=== PATIENT | male | born 1980 | race Caucasian/White ===

== ENCOUNTER 2019-03-28 08:10 | Emergency (ER) | payer OTHER ==
[~2019-03-28] VITALS: Ht 188 cm; Wt 129.3 kg
--- OUTSIDE RECORDS SUMMARY | ~2019-03-28 | XMS | Encounter Summary ---
Demographics + + + | Address | [address] | | | [place] [address] | + + + | Home Phone | | + + + | Preferred Language | Unknown | + + + | Marital Status | Unknown | + + + | Taoism Affiliation | 1013 | + + + | Race | Unknown | + + + | Ethnic Group | Unknown | + + + Author + + + | Author | [facility] | | | and [place] | + + + | Organization | [facility] | | | and [place] [...] Team Providers + +------+ + | Care Net Technical Architect Name | Role | Phone | + +------+ + | Corrine Carroll | PCP | | | CONTRACT ADMINISTRATION COORDINATOR | | | + +------+ + Reason for Visit + + + | Reason | Comments | + + + | Hand Pain | right hand | + + + | Knee Pain | left knee pain | + + + Evaluate & Treat (Routine) +--------+--------+ + + + + | Status | Reason | Specialty | Diagnoses / | Referred By | Referred To | | | | | Procedures | Contact | Contact | +--------+--------+ + + + + | Closed | | Orthopedic | Diagnoses | Blood, | Sae, | | | | Surgery | Closed | Corrine | Maik Madden MD | | | | | fracture of | [place], | [address] | | | | | metacarpal | CONTRACT ADMINISTRATION COORDINATOR [address] [place] | | | | | bone(s), | [address] | [place], [place] | | | | | site | [place], | [address] Phone: | | | | | unspecified | [place] [address] | [phone] | | | | | Pain in | Phone: | Fax: | | | | | joint, lower | [phone] | [phone] | | | | | leg | Fax: | | | | | | Aftercare | [phone] | | | | | | for healing | | | | | | | traumatic | | | | | | | fracture of | | | | | | | lower arm | | | | | | | Osteoarthros | | | | | | | is, | | | | | | | unspecified | | | | | | | whether | | | | | | | generalized | | | | | | | or | | | | | | | localized, | | | | | | | ankle and | | | | | | | foot | | | +--------+--------+ + + + + Encounter Details +--------+---------+ + + + | Date | Type | Department | Care Team | Description | +--------+---------+ + + + | 05/23/ | Office | [facility] | Maik Quevedo | Closed fracture of | | 2013 | Visit | ORTHOPEDIC SURGERY | MD Chano [address] [place] [address] | fifth metacarpal | | | | [address] [facility] | [place] | bone of right hand | | | | [place] | [address] | (Primary Dx); | | | | [address] | | Arthritis of knee, | | | | [phone] | | degenerative | +--------+---------+ + + + Social History + + [...] on file | | + + + + + + + | Job Start Date | Occupation | Industry | + + + + | Not on file | Not on file | Not on file | + + + + + + + + | Travel History | Travel Start | Travel End | + + + + + + | No recent travel history available. | + + documented as of this encounter Last Filed Vital Signs + + + [...] + + + documented in this encounter Progress Notes Maik Quevedo MD - 05/23/2013 8:00 PM Taras schmitz note [id number].Electronically arlin d by Maik Quevedo MD at 05/23/2013 8:00 PM Maik Hill MD - 05/23/2013 12:00 AM PST ORTHOPEDICS [facility] [place] [address] FAX: [phone] OFFICE VISIT IDENTIFICATION Marie Scott is a 32-year-old male who sees [facility] for primary car e. He resides in [place]. CHIEF COMPLAINT: Right hand pain and left knee pain. HISTORY: Mr. Scott states that he sustained anxiety attacks, which causes irrational beh avior. He apparently awoke from anxiety attack and noted swelling and pain in his right sherman d. He was seen in the emergency room at [facility] and found to have a comm inuted fracture dislocation of the base of his right 5th metacarpal. He was subsequently se en by Dr. Kennedy who then took the patient to surgery on February 09, for open reduction and i nternal fixation of his proximal right 5th metacarpal fracture dislocation. The pins were le ft in until March 08, approximately 1 month later, at which time they were removed. He w as seen for a final followup on March 29, at which time he complained of a 4/10 pain and was not felt to need any further formal followup. Today, Mr. Scott is concerned about co ntinued discomfort and a feeling of stiffness in his right hand. He denies recurrent injury following his surgery. He voiced concern about possible dislocation of his hand. In regards to his left knee, he notes persisting discomfort in the anterior aspect of his l eft knee for a number of months. He does not recall a specific injury. He notes that his kn ee is more symptomatic with physical activity. PAST MEDICAL HISTORY: Includes restless leg syndrome, anxiety, depression, gastroesophageal reflux disease, and obesity. 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 PAST SURGICAL HISTORY: Includes cholecystectomy, tonsillectomy, adenoidectomy, and right peres nd surgery. MEDICATION ALLERGIES: AZITHROMYCIN. CURRENT MEDICATIONS 1. Tramadol p.r.n. pain. 2. Requip 1 mg p.o. daily. 3. Zofran p.r.n. 4. Pantoprazole 40 mg p.o. daily. 5. Levaquin 500 mg p.o. daily. 6. Xanax 0.5 mg p.o. t.i.d. p.r.n. 7. Celexa daily. 8. Acetaminophen p.r.n. pain. FAMILY HISTORY: Positive for arthritis, asthma, defects, COPD, depression, diabetes, early , hearing loss, heart disease, high blood pressure, mental illness and vision lo ss. REVIEW OF SYSTEMS: Positive for glasses, ringing in the ears, neck pain, back pain, and verónica nt problems. PHYSICAL EXAMINATION: The patient's right hand is examined. He has well-healed scars includ ing a short longitudinal incision over the proximal dorsal aspect of the 5th metacarpal as well as several pin site incisions which are well healed. The patient is able to touch the tip of the finger to his palm. He is able to abduct and adduct all the fingers of the right hand. He has intact neurovascular function to the tips of all fingers of the right hand. H e complains of moderate tenderness to palpation in the region of the proximal 5th metatarsa l. There is no rotational deformity of the 5th ray of the right hand. Exam of the patient's left knee reveals tenderness surrounding the patella with a suggestio n of patellar crepitus associated with knee motion. The patella was tracking in the midline . The knee ligaments are stable. Neurovascular function is intact to the left foot. X-RAYS: New x-rays are obtained today of the patient's right hand and carefully reviewed. T hese show a comminuted but well reduced fracture involving the proximal end of the 5th meta carpal. There appears to be somewhat minimal bone healing, although the fracture lines are slightly blurred. Overall metacarpal alignment and length appears to be essentially anatomi c. X-ray of the left knee is reviewed, which shows early degenerative change as suggested by a small marginal osteophyte formation in the proximal and distal patella as well as along th e tibial plateau margins. ASSESSMENT 1. THREE AND A HALF MONTHS STATUS POST OPEN REDUCTION AND INTERNAL FIXATION OF PROXIMAL FR ACTURE DISLOCATION, RIGHT 5TH METACARPAL WITH PROBABLE DELAYED BONY UNION. 2. EARLY DEGENERATIVE CHANGE, LEFT KNEE. 2. 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 ADVICE: We discussed our findings at length with Marie and his significant other. He con tinues to smoke on a regular basis. I advised him that recent orthopedic literature notes t hat nicotine users heal approximately half as fast as nonsmokers and that certainly some of his delayed healing is due to ongoing use of nicotine. We have strongly encouraged smoking cessation. I do not feel that he has a nonunion. We did discuss the option of obtaining a C T scan to verify bone healing, but I feel that he will go on to improve with further time. I suggested progressive use of the right hand to tolerance, but careful avoidance of furthe r high impact injury. He may wish to use oxes-mzw-svxeedc anti-inflammatory medications as needed for flares of pain. Certainly his hand will feel better with the passage of time and once of the weather starts to warm as spring approaches. We have answered questions from carlos Quiles and his significant other and will plan to see him back in the future as needed . Maik Quevedo MD / [facility] JOB #: [id number] signed by Maik Quevedo MD at 08/22/2013 2:20 PM PDTdo cumented in this encounter Plan of Treatment Not on filedocumented as of this encounter Results XR Hand Right 3 + Vw (05/23/2013 5:36 PM PST) + + | Specimen | + + | | + + + + + | Narrative | Performed At | + + + | [facility] | [place] | | [address] | [facility] | | [ rep [address]] [ rep [facility] | | st zip] Signed | - IMAGING | | | | | Patient Name: MARIE SCOTT Physician: | | | COREEN. : 1980 Age: 32 Sex: M Unit #: [id number] | | | Exam Date: 05/23/13 [place] [facility] [place] | | Report #: [id number] Page: | | | %(RAD)RES..mtdd.print.filter("pg") of %(RAD) | | | RES..mtdd.print.filter("tpg") | | | | | | Accession Number: [id number] | | | RIGHT HAND X-RAY CLINICAL [...] Transcribed Date/Time: | | | 05/23/2013 18:41 Dealer Analyst: | | | <<Signature on File>> | | | Kali | Tosha Bourgeois MD05/24/13 0743 <Electronically signed by Kali Bourgeois MD> Kali Bourgeois MD 05/23/13 1736 | | | Dealer Analyst: [employer] Jccnnzaofrzji26/04/14 1841 | | | Maik Quevedo MD | | + + + + + + + + | Performing | Address | City/State/Zipcode | Phone Number | | Organization | | | | + + + + + | [facility] | [address] | [place] | [phone] | | [facility] | | [address] | | | - IMAGING | | | | + + + + + documented in this encounter Visit Diagnoses + + | Diagnosis | + + | Closed fracture of fifth metacarpal bone of right hand - Primary Closed fracture of | | metacarpal bone(s), site unspecified | + + | Arthritis of knee, degenerative Osteoarthrosis, unspecified whether generalized or | | localized, lower leg | + + documented in this encounter
--- OUTSIDE RECORDS SUMMARY | ~2019-03-28 | XMS | Encounter Summary ---
Demographics + + + | Address | [address] | | | [place] [address] | + + + | Home Phone | | + + + | Preferred Language | Unknown | + + + | Marital Status | Unknown | + + + | Sikhism Affiliation | 1013 | + + + | Race | Unknown | + + + | Ethnic Group | Unknown | + + + Author + + + | Author | [facility] | | | and [place] | + + + | Organization | [facility] | | | and [place] [...] Team Providers + +------+ + | Care Cashiers Supervisor Name | Role | Phone | + +------+ + | Corrine Carroll | PCP | | | SALES ENGAGEMENT MANAGER | | | + +------+ + Encounter Details +--------+ + + + + | Date | Type | Department | Care Team | Description | +--------+ + + + + | 05/23/ | [facility] | [facility] | Maik Quevedo | Closed fracture of | | 2013 | Encounter | MED CTR XRAY [address] | [address], [address] [facility] | fifth metacarpal | | | | [place] | [place] | bone of right hand | | | | [place] [address] | [address] | | | | | [phone] | | | +--------+ + + + [...] Performed At | + + + | [facility] | [place] | | Department [address] [place] | [place] | | [ rep [address]] [ rep [facility] | | st zip] Signed | - IMAGING | | | | | Patient Name: RACHEAL JIMENEZTON Physician: | | | COREEN.01 : 1980 Age: 32 Sex: M Unit #: [id number] | | | Exam Date: 05/23/13 [place] [facility] [place] | | | Report #: [id number] Page: | | | %(RAD)RES..mtdd.print.filter("pg") of %(RAD) | | | RES..mtdd.print.filter("tpg") | | | | | | Accession Number: [id number] | | | RIGHT HAND X-RAY CLINICAL [...] Transcribed Date/Time: | | | 05/23/2013 18:41 Director Camp: | | | <<Signature on File>> | | | Kali | | | Serafin Bourgeois MD05/24/13 0743 <Electronically signed by Kali Betancourt | | Tosha Bourgeois MD> Kali Bourgeois MD 05/23/13 1736 | | | Director Camp: [employer] Intelligencemahsa Oujufkqdshxqp64/04/14 1841 | | | Maik Quevedo MD | | + + + + + + + + | Performing | Address | City/State/Zipcode | Phone Number | | Organization | | | | + + + + + | [facility] | [address] | [place] | [phone] | | [facility] | | [address] | | | - IMAGING | | | | + + + + + documented in this encounter Visit Diagnoses + + | Diagnosis | + + | Closed fracture of fifth metacarpal bone of right hand Closed fracture of metacarpal | | bone(s), site unspecified | + + documented in this encounter
--- OUTSIDE RECORDS SUMMARY | ~2019-03-28 | XMS | Clinical Summary ---
Demographics + + + | Address | [address] | | | [place] [address] | + + + | Home Phone | | + + + | Preferred Language | Unknown | + + + | Marital Status | Unknown | + + + | Mormon Affiliation | 1013 | + + + | Race | Unknown | + + + | Ethnic Group | Unknown | + + + Author + + + | Author | [facility] | | | and [place] | + + + | Organization | [facility] | | | and [place] [...] Team Providers + +------+ + | Care Reading Aide Name | Role | Phone | + [...] recent travel history available. | + + Last Filed Vital Signs + [...] + + Plan of Treatment + + + + + | Health Maintenance | Due Date | Last Done | Comments | + + + + + | Vaccine: | | | | | Dtap/Tdap/Td (1 - | 0 | | | | Tdap) | | | | + + + + + | Vaccine: Influenza | | | | | (#1) | 9 | | | + + + + + Results Not on filefrom Last 3 [...] | [employer] | [facility] | [id number] | 04/26/19 | [phone] | | Medica [...] | Self | [birth year] | [address] | | | al/Fam | | 1981 | [phone] | [place] [address] | | | [place]ia [place]ores | | | 6 (Home) | | + +--------+ +--------+ + + Advance Directives + + + + + | Type | Date Recorded | Patient | Explanation | | | | Screening Nurse | | + + + + + | Power of | | | | | Pmp | | | | + + + + + | Advance | | | | | Directive | | | | + + + + +
--- OUTSIDE RECORDS SUMMARY | ~2019-03-28 | XMS | Encounter Summary ---
Demographics + + + | Address | [address] | | | [place] [address] | + + + | Home Phone | | + + + | Preferred Language | Unknown | + + + | Marital Status | Unknown | + + + | Sabianist Affiliation | 1013 | + + + | Race | Unknown | + + + | Ethnic Group | Unknown | + + + Author + + + | Author | [facility] | | | and [place] | + + + | Organization | [facility] | | | and [...] Team Providers + +------+ + | Care Cone Machine Operator Name | Role | Phone | + +------+ + | Corrine Carroll | PCP | | | GRADING CLERK | | | + +------+ + Encounter Details +--------+ + + + + | Date | Type | Department | Care Team | Description | +--------+ + + + + | 05/23/ | [facility] | [facility] | Maik Quevedo | Closed fracture of | | 2013 | Encounter | MED CTR XRAY [address] [facility] | fifth metacarpal | | | | [place] | [place] | bone of right hand | | | | [place] [address] | [address] | | | | | [phone] | | | +--------+ + + + [...] Performed At | + + + | [facility] | ALLIGATOR | | Department [address] [place] | [facility] | | [ rep ct [address]] [ rep [facility] | | st zip] Signed | - IMAGING | | | | | Patient Name: RACHEAL JIMENEZTON Physician: | | | COREEN.01 : 1980 Age: 32 Sex: M Unit #: [id number] | | | Exam Date: 05/23/13 Location: [facility] [place] | | | Report #: [id number] Page: | | | %(RAD)RES..mtdd.print.filter("pg") of %(RAD) | | | RES..mtdd.print.filter("tpg") | | | | | | Accession Number: [id number] | | | RIGHT HAND X-RAY CLINICAL [...] Transcribed Date/Time: | | | 05/23/2013 18:41 Pmp: | | | <<Signature on File>> | | | Kali | | | Serafin Bourgeois MD05/24/13 0743 <Electronically signed by Kali Betancourt | | Tosha Bourgeois MD> Kali Bourgeois MD 05/23/13 1736 | | | Pmp: [email or web address].commahsa Itsseeiongofz31/04/14 1841 | | | Maik Quevedo MD | | + + + + + + + + | Performing | Address | City/State/Zipcode | Phone Number | | Organization | | | | + + + + + | [facility] | [address] | [place] | [phone] | | [facility] | | [address] | | | - IMAGING | | | | + + + + + documented in this encounter Visit Diagnoses + + | Diagnosis | + + | Closed fracture of fifth metacarpal bone of right hand Closed fracture of metacarpal | | bone(s), site unspecified | + + documented in this encounter
--- OUTSIDE RECORDS SUMMARY | ~2019-03-28 | XMS | Encounter Summary ---
Demographics + + + | Address | [address] | | | [place] [address] | + + + | Home Phone | | + + + | Preferred Language | Unknown | + + + | Marital Status | Unknown | + + + | Sabianist Affiliation | 1013 | + + + | Race | Unknown | + + + | Ethnic Group | Unknown | + + + Author + + + | Author | [facility] | | | and [place] | + + + | Organization | [facility] | | | and [place] [...] Team Providers + +------+ + | Care Rug Sizer Name | Role | Phone | + +------+ + | Corrine Carroll | PCP | | | FILLING WINDER | | | + +------+ + Encounter Details +--------+ + + + + | Date | Type | Department | Care Team | Description | +--------+ + + + + | 05/24/ | Abstract | [facility] | aMik Quevedo | | | 2013 | | ORTHOPEDIC SURGERY | MD [address]ano [address] | | | | | [address] [facility] | [place] | | | | | [place] | [address] | | | | | [address] | | | | | | [phone] | | | +--------+ + + + [...]
--- OUTSIDE RECORDS SUMMARY | ~2019-03-28 | XMS | Encounter Summary ---
Demographics + + + | Address | [address] | | | [place] [address] | + + + | Home Phone | | + + + | Preferred Language | Unknown | + + + | Marital Status | Unknown | + + + | Methodist Affiliation | 1013 | + + + | Race | Unknown | + + + | Ethnic Group | Unknown | + + + Author + + + | Author | [facility] | | | and [place] | + + + | Organization | [facility] | | | and [place] [...] Team Providers + +------+ + | Care American Studies Professor Name | Role | Phone | + +------+ + | Corrine Carroll | PCP | | | TAPPER BALANCE WHEEL SCREW HOLE | | | + +------+ + Encounter Details +--------+ + + + + | Date | Type | Department | Care Team | Description | +--------+ + + + + | 05/24/ | Abstract | [facility] | Maik Quevedo | | | 2013 | | ORTHOPEDIC SURGERY | MD [address]ano [address] [facility] | | | | | [address] [facility] | [place] | | | | | [place] | [address] | | | | | [address] | | | | | | [phone] | | | +--------+ + + + [...]
--- OUTSIDE RECORDS SUMMARY | ~2019-03-28 | XMS | Clinical Summary ---
Demographics + + + | Address | [address] | | | [place] [address] | + + + | Home Phone | | + + + | Preferred Language | Unknown | + + + | Marital Status | Unknown | + + + | Scientologist Affiliation | 1013 | + + + | Race | Unknown | + + + | Ethnic Group | Unknown | + + + Author + + + | Author | [facility] | | | and [place] | + + + | Organization | [facility] | | | and [...] Team Providers + +------+ + | Care Feed Elevator Worker Name | Role | Phone | + [...] | [employer] | [facility] | [id number] | 04/26/19 | [phone] | | Medica [...] | Self [birth year] | | [address] | | | al/Fam | | 1981 | [phone] | [place] [address] | | | maria dolores | | | 6 (Home) | | + +--------+ +--------+ + + Advance Directives + + + + + | Type | Date Recorded | Patient | Explanation | | | | Air And Hydronic Balancing Technician | | + + + + + | Power of | | | | | Clerk | | | | + + + + + | Advance | | | | | Directive | | | | + + + + +
--- OUTSIDE RECORDS SUMMARY | ~2019-03-28 | XMS | Encounter Summary ---
Demographics + + + | Address | [address] | | | [place] [address] | + + + | Home Phone | | + + + | Preferred Language | Unknown | + + + | Marital Status | Unknown | + + + | Oriental Orthodox Affiliation | 1013 | + + + | Race | Unknown | + + + | Ethnic Group | Unknown | + + + Author + + + | Author | [facility] | | | and [place] | + + + | Organization | [facility] | | | and [place] [...] Team Providers + +------+ + | Care Greenstone Polisher Operator Name | Role | Phone | + +------+ + | Corrine Carroll | PCP | | | PROOF PLATE MAKER | | | + +------+ + Reason [...] Surgery | Closed | Corrine | Maik Madedn MD | | | | | fracture of | [place], | [address] | | | | | metacarpal | PROOF PLATE MAKER [address] [place] | | | | | bone(s), | [address] | [place], [place] | | | | | site | [place], | [address] Phone: | | | | | unspecified | [place] [address] | [phone] | | | | | Pain in | Phone: | Fax: | | | | | joint, lower | [phone] | [phone] | | | | | leg | Fax: | | | | | | Aftercare | [phone] | | | | | | for [...] + + | 05/23/ | Office | [facility] | Maik Quevedo | Closed fracture of | | 2013 | Visit | ORTHOPEDIC SURGERY | MD Chano [address] [place] [address] | fifth metacarpal | | | | [address] [facility] | [place] | bone of right hand | | | | [place] | [address] | (Primary Dx); | | | | [address] | | Arthritis of knee, | | | | [phone] | | degenerative | +--------+---------+ + + [...] - 05/23/2013 8:00 PM Taras schmitz note [id number].Electronically arlin d by Maik Quevedo MD at 05/23/2013 8:00 PM Maik Hill MD - 05/23/2013 12:00 AM PST ORTHOPEDICS [facility] [place] [address] FAX: [phone] OFFICE VISIT IDENTIFICATION Marie Scott is a 32-year-old male who sees [facility] for primary car e. He resides in [place]. CHIEF COMPLAINT: Right hand pain and left knee pain. HISTORY: Mr. Scott states that he sustained anxiety attacks, which causes irrational beh avior. He apparently awoke from anxiety attack and noted swelling and pain in his right sherman d. He was seen in the emergency room at [facility] and found to have a [...] impact injury. He may wish to use vmss-qge-czhbqtm anti-inflammatory medications as needed for flares of pain. Certainly his hand will feel better with the passage of time and once of the weather starts to warm as spring approaches. We have answered questions from carlos Quiles and his significant other and will plan to see him back in the future as needed . Maik Quevedo MD / [facility] JOB #: [id number] signed by Maik Quevedo MD at 08/22/2013 2:20 PM PDTdo cumented in this encounter Plan of Treatment Not on filedocumented as of this encounter Results XR Hand Right 3 + Vw (05/23/2013 5:36 PM PST) + + | Specimen | + + | | + + + + + | Narrative | Performed At | + + + | [facility] | [place] | | [address] | [facility] | | [ rep [address]] [ rep [facility] | | st zip] Signed | - IMAGING | | | | | Patient Name: MARIE SCOTT Physician: | | | COREEN. : 1980 Age: 32 Sex: M Unit #: [id number] | | | Exam Date: 05/23/13 [place] [facility] [place] | | Report #: [id number] Page: | | | %(RAD)RES..mtdd.print.filter("pg") of %(RAD) | | | RES..mtdd.print.filter("tpg") | | | | | | Accession Number: [id number] | | | RIGHT HAND X-RAY CLINICAL [...] Transcribed Date/Time: | | | 05/23/2013 18:41 Wig Dresser: | | | <<Signature on File>> | | | Kali | Tosha Bourgeois MD05/24/13 0743 <Electronically signed by Kali Bourgeois MD> Kali Bourgeois MD 05/23/13 1736 | | | Wig Dresser: [employer] Rvnyuortzckxm82/04/14 1841 | | | Maik Quevedo MD | | + + + + + + + + | Performing | Address | City/State/Zipcode | Phone Number | | Organization | | | | + + + + + | [address] | [address] | [place] | [phone] | | [facility] | | [address] | | | - IMAGING | | [...]
[~2019-03-28 08:10] MED LIST: ABILIFY DISCMEL10 MG PO; ABILIFY10 MG; ACETAMINOPHEN-1 EAC1 PO; ANUSOL-HC30 GM PR; BENADRYL25 MG PO; CELEXA40 MG PO; CYMBALTA60 MG PO; DOXYCYCLINE HY100 MG PO; FLEXERIL10 MG PO; IBUPROFEN800 MG PO; LOPRESSOR50 MG PO; NAPROXEN500 MG PO; NORCO 10-325 T1 EACH PO; NORCO 5-325 TA1 EACH PO; PROMETHAZINE HC25 M1 PO; PROTONIX40 MG PO; REMERON15 M1 SL; REMERON15 MG PO; ROPINIROLE HCL1 MG PO; TRAMADOL HCL50 MG PO; TYLENOL325 M1 PO; ULTRAM50 MG PO; XANAX0.5 MG PO
--- OUTSIDE RECORDS SUMMARY | 2019-03-28 08:12 | XMS ---
PreManage Notification: MARIE JIMENEZ Security Lead Java Software Engineer Events No recent Security Events currently on file CRITERIA MET - Group Notification - [facility] - Has Care Guidelines CARE PROVIDERS There are no care providers on record at this time. Ty has no Care Guidelines for this patient. Care History Medical/Surgical 11/18/2018 [facility] Care Recommendation: - Patient DOES NOT have a PCP. - Please refer patient to [facility] [place] [facility]: [address] [place] [address] 9, [place], [place] [address] This patient has had 5 or more Emergency Department visits in the last 12 months.\T\nbsp; Patient requires education on the scope and purpose of the ED as an acute care provider not a Primary Care Provider and should not be utilized for chronic conditions.\T\nbsp; If patient returns to ED please contact Community Health WorkerSienna at [phone]. These are guidelines and the provider should exercise clinical judgment when providing care. E.D. VISIT COUNT (12 MO.) 3 [facility] TOTAL 3 NOTE: Visits indicate total known visits. ED/UCC VISIT TRACKING (12 MO.) 03/28/2019 08:11 [facility] [place] TYPE: Emergency COMPLAINT: - SKIN PROBLEM, FEVER, VOMITING 11/17/2018 09:54 [facility] [place] TYPE: Emergency COMPLAINT: - BLACKED OUT HITTING HEAD DIAGNOSES: - Sprain of joints and ligaments of unsp parts of neck, init - Fall on same level, unspecified, initial encounter - Personal history of nicotine dependence - Cervicalgia - Abrasion of scalp, initial encounter - Allergy status to other antibiotic agents status 11/08/2018 19:06 [facility] [place] TYPE: Emergency COMPLAINT: - FEVER DIAGNOSES: - Other terminal carman (current) drug therapy - Nausea with vomiting, unspecified - Personal history of nicotine dependence - Allergy status to other antibiotic agents status - Fever, unspecified - Diarrhea, unspecified INPATIENT VISIT TRACKING (12 MO.) No inpatient visits to display in this time frame [id number]
[2019-03-28] MEDS ORDERED: ACETAMINOPHEN500 MG PO (08:22)
[2019-03-28] MEDS ORDERED: BENADRYL25 MG PO (08:23)
[2019-03-28] MEDS ORDERED: KEFLEX500 MG PO (08:54)
== END 2019-03-28 09:36 | disposition home or self-care (01) ==
LOC: ED 08:10
PROC: 0H98XZZ Drainage of Buttock Skin, External Approach (ICD-10-PCS; principal; 2019-03-28)
DX: L02.31 Cutaneous abscess of buttock (principal); F32.9 Major depressive disorder, single episode, unspecified; K21.9 Gastro-esophageal reflux disease without esophagitis; Z87.891 Personal history of nicotine dependence; Z88.1 Allergy status to other antibiotic agents; Z79.899 Other long term (current) drug therapy
CPT/HCPCS: 10060; 80053; 85025; 99283-25; J0690; J1885; J2060

== ENCOUNTER 2020-01-08 17:54 | Emergency (ER) | payer OTHER ==
[~2020-01-08] VITALS: Ht 188 cm; Wt 129.3 kg
--- OUTSIDE RECORDS SUMMARY | ~2020-01-08 | XMS | Clinical Summary ---
Demographics + + + | Address | [address] | | | [place] [address] | + + + | Home Phone | | + + + | Preferred Language | Unknown | + + + | Marital Status | Unknown | + + + | Jew Affiliation | 1013 | + + + | Race | White | + + + | Ethnic Group | Not or | + + + Author + + + | Author | [facility] | | | and [place] | + + + | Organization | [facility] | | | and [place] | + + + | Address | Unknown | + + + | Phone | Unavailable | + + + Support + + +---------+ + | Name | Relationship | Address | Phone | + + +---------+ + | Listed None | ECON | Unknown | | + + +---------+ + Care Team Providers + +------+ + | Care Global Human Resources Director Name | Role | Phone | + +------+ + | Pierce Burnett MD | PCP | | + +------+ + Allergies + + + + + + | Active Allergy | Reactions | Severity | Noted | Comments | | | | | Date | | + + + + + + | Azithromycin | Hives | | 05/23/19 | | | | | | 14 | | + + + + + + Medications + + + +---------+------+------+-------+ | Medication | Sig | Dispensed | Refills | Star | End | Statu | | | | | | t | Date | s | | | | | | Date | | | + + + +---------+------+------+-------+ | traMADol (ULTRAM) | Take 50 mg by mouth | | 0 | | | Activ | | 50 mg tablet | every 6 hours as | | | | | e | | | needed. | | | | | | + + + +---------+------+------+-------+ | rOPINIRole | Take 1 mg by mouth 3 | | 0 | | | Activ | | (REQUIP) 1 mg tablet | times daily. | | | | | e | + + + +---------+------+------+-------+ | ondansetron | Take 8 mg by mouth | | 0 | | | Activ | | (ZOFRAN) 8 MG tablet | as needed. | | | | | e | + + + +---------+------+------+-------+ | pantoprazole | Take 40 mg by mouth | | 0 | | | Activ | | (PROTONIX) 40 mg | Daily. | | | | | e | | tablet | | | | | | | + + + +---------+------+------+-------+ | levofloxacin | Take 500 mg by mouth | | 0 | | | Activ | | (LEVAQUIN) 500 mg | Daily. | | | | | e | | tablet | | | | | | | + + + +---------+------+------+-------+ | ALPRAZolam (XANAX) | Take 0.5 mg by mouth | | 0 | | | Activ | | 0.5 mg tablet | 3 times daily as | | | | | e | | | needed. | | | | | | + + + +---------+------+------+-------+ | Citalopram | Take by mouth | | 0 | | | Activ | | Hydrobromide (CELEXA | Daily. | | | | | e | | PO) | | | | | | | + + + +---------+------+------+-------+ | acetaminophen | Take 1,000 mg by | | 0 | | | Activ | | (TYLENOL) 500 mg | mouth every 6 hours | | | | | e | | tablet | as needed. | | | | | | + + + +---------+------+------+-------+ Active Problems Not on file Family History + + +------+ + | Medical History | Relation | Name | Comments | + + +------+ + | Asthma | Brother | | | + + +------+ + | Depression | Brother | | | + + +------+ + | Mental illness | Brother | | | + + +------+ + | Vision loss | Brother | | | + + +------+ + | Asthma | Father | | | + + +------+ + | Cancer | Father | | | + + +------+ + | Diabetes | Father | | | + + +------+ + | Hearing loss | Father | | | + + +------+ + | High blood pressure | Father | | | + + +------+ + | Vision loss | Father | | | + + +------+ + | Cancer | Maternal | | | | | Grandfath | | | | | er | | | + + +------+ + | Early | Maternal | | | | | Grandfath | | | | | er | | | + + +------+ + | Heart disease | Maternal | | | | | Grandfath | | | | | er | | | + + +------+ + | Premature CHD | Maternal | | | | | Grandfath | | | | | er | | | + + +------+ + | Vision loss | Maternal | | | | | Grandfath | | | | | er | | | + + +------+ + | Arthritis | Maternal | | | | | Grandmoth | | | | | er | | | + + +------+ + | Depression | Maternal | | | | | Grandmoth | | | | | er | | | + + +------+ + | Diabetes | Maternal | | | | | Grandmoth | | | | | er | | | + + +------+ + | Hearing loss | Maternal | | | | | Grandmoth | | | | | er | | | + + +------+ + | Heart disease | Maternal | | | | | Grandmoth | | | | | er | | | + + +------+ + | Premature CHD | Maternal | | | | | Grandmoth | | | | | er | | | + + +------+ + | Vision loss | Maternal | | | | | Grandmoth | | | | | er | | | + + +------+ + | Asthma | Mother | | | + + +------+ + | Cancer | Mother | | | + + +------+ + | Depression | Mother | | | + + +------+ + | Diabetes | Mother | | | + + +------+ + | Mental illness | Mother | | | + + +------+ + | Vision loss | Mother | | | + + +------+ + | Arthritis | Paternal | | | | | Grandfath | | | | | er | | | + + +------+ + | Asthma | Paternal | | | | | Grandfath | | | | | er | | | + + +------+ + | COPD | Paternal | | | | | Grandfath | | | | | er | | | + + +------+ + | Cancer | Paternal | | | | | Grandfath | | | | | er | | | + + +------+ + | Depression | Paternal | | | | | Grandfath | | | | | er | | | + + +------+ + | Diabetes | Paternal | | | | | Grandfath | | | | | er | | | + + +------+ + | Hearing loss | Paternal | | | | | Grandfath | | | | | er | | | + + +------+ + | Heart disease | Paternal | | | | | Grandfath | | | | | er | | | + + +------+ + | Premature CHD | Paternal | | | | | Grandfath | | | | | er | | | + + +------+ + | Vision loss | Paternal | | | | | Grandfath | | | | | er | | | + + +------+ + | Arthritis | Paternal | | | | | Grandmoth | | | | | er | | | + + +------+ + | Depression | Paternal | | | | | Grandmoth | | | | | er | | | + + +------+ + | Diabetes | Paternal | | | | | Grandmoth | | | | | er | | | + + +------+ + | Hearing loss | Paternal | | | | | Grandmoth | | | | | er | | | + + +------+ + | Heart disease | Paternal | | | | | Grandmoth | | | | | er | | | + + +------+ + | Premature CHD | Paternal | | | | | Grandmoth | | | | | er | | | + + +------+ + | Vision loss | Paternal | | | | | Grandmoth | | | | | er | | | + + +------+ + | Vision loss | Son | | | + + +------+ + + +------+ + + | Relation | Name | Status | Comments | + +------+ + + | Brother | | Alive | | + +------+ + + | Daughter | | Alive | | + +------+ + + | Father | | Alive | | + +------+ + + | Maternal Grandfather | | | | + +------+ + + | Maternal Grandmother | | Alive | | + +------+ + + | Mother | | Alive | | + +------+ + + | Paternal Grandfather | | Alive | | + +------+ + + | Paternal Grandmother | | Alive | | + +------+ + + | Son | | Alive | | + +------+ + + Social History + + + +--------+ + | Tobacco Use | Types | Packs/Day | Years | Date | | | | | Used | | + + + +--------+ + | Current Every Day | Cigarettes | 2 | | Started: 07/22/1991 | | Smoker | | | | | + + + +--------+ + + +---+---+---+ | Smokeless Tobacco: | | | | | Never Used | | | | + +---+---+---+ + + +---------+ + | Alcohol Use | Drinks/Week | oz/Week | Comments | + + +---------+ + | Not Asked | | | | + + +---------+ + + + + | Sex Assigned at | Date Recorded | | | | + + + | Not on file | | + + + Last Filed Vital Signs + + + + + | Vital Sign | Reading | Time Taken | Comments | + + + + + | Blood Pressure | - | - | | + + + + + | Pulse | - | - | | + + + + + | Temperature | 37.4 C (99.3 F) | 05/23/2013 1:17 PM | | | | | PST | | + + + + + | Respiratory Rate | - | - | | + + + + + | Oxygen Saturation | - | - | | + + + + + | Inhaled Oxygen | - | - | | | Concentration | | | | + + + + + | Weight | 117 kg (258 lb) | 05/23/2013 1:17 PM | | | | | PST | | + + + + + | Height | 188 cm (6' 2") | 05/23/2013 1:17 PM | | | | | PST | | + + + + + | Body Mass Index | 33.13 | 05/23/2013 1:17 PM | | | | | PST | | + + + + + Plan of Treatment + + +-------+ + | Health Maintenance | Due Date | Last | Comments | | | | Done | | + + +-------+ + | Vaccine: | | | | | Dtap/Tdap/Td (1 - | 0 | | | | Tdap) | | | | + + +-------+ + | Vaccine: Influenza | | | | | (#1) | 0 | | | + + +-------+ + Results Not on filefrom Last 3 Months Insurance + +--------+ +--------+ +---------+--------+ | Payer | Benefi | Subscriber | Effect | Phone | Address | Type | | | t Plan | ID | dionne | | | | | | / | | Dates | | | | | | Group | | | | | | + +--------+ +--------+ +---------+--------+ | [employer] | [employer] | [id number] | 04/26/19 | [phone] | | Medica | | MEDICAID HMO | HEALTH | | 14-Pre | 1 | | id | | | MDCD | | sent | | | | | | HMO [place] | | | | | | + +--------+ +--------+ +---------+--------+ + +--------+ +--------+ + + | Guarantor Name | Accoun | Relation to | Date | Phone | Billing Address | | | t Type | Patient | of | | | | | | | | | | + +--------+ +--------+ + + | Kb Scott | Person | Self [birth year] | [address] | | | al/Fam | | 1981 | [phone] | [place] [address] | | | maria dolores | | | 6 (Home) | | + +--------+ +--------+ + + | Kb Scott | Person | Self [birth year] | [address] | | | al/Fam | | 1981 | [phone] | [place] [address] | | | maria dolores | | | 6 (Home) | | + +--------+ +--------+ + + Advance Directives + + + + + | Type | Date Recorded | Patient | Explanation | | | | Pharmacy Intake Coordinator | | + + + + + | Power of | | | | | Finished Goods Inspector | | | | + + + + + | Advance | | | | | Directive | | | | + + + + +
--- OUTSIDE RECORDS SUMMARY | ~2020-01-08 | XMS | Encounter Summary ---
Demographics + + + | Address | [address] | | | [place] [address] | + + + | Home Phone | | + + + | Preferred Language | Unknown | + + + | Marital Status | Unknown | + + + | Taoist Affiliation | 1013 | + + + | Race | White | + + + | Ethnic Group | Not or | + + + Author + + + | Author | [facility] | | | and [place] | + + + | Organization | [facility] | | | and [...] Team Providers + +------+ + | Care Home Care Liaison Name | Role | Phone | + +------+ + | Corrine Carroll | PCP | | | TRAVELING CLERK | | | + +------+ + Encounter Details +--------+ + + + + | Date | Type | Department | Care Team | Description | +--------+ + + + + | 05/23/ | [facility] | [facility] | Maik Quevedo | Closed fracture of | | 2013 | Encounter | MED CTR XRAY [address] [facility] | fifth metacarpal | | | | [place] | [place], [place] | bone of right hand | | | | [place] [address] | [address] | | | | | [phone] | | | +--------+ + + + + Social History + + + [...] on file | | + + + documented as of this encounter Medications at Time of Discharge + + + +---------+--------+ + | Medication | Sig | Dispensed | Refills | Start | End Date | | | | | | Date | | + + + +---------+--------+ + | acetaminophen | Take 1,000 mg by | | 0 | | | | (TYLENOL) 500 mg | mouth every 6 hours | | | | | | tablet | as needed. | | | | | + + + +---------+--------+ + | ALPRAZolam (XANAX) | Take 0.5 mg by mouth | | 0 | | | | 0.5 mg tablet | 3 times daily as | | | | | | | needed. | | | | | + + + +---------+--------+ + | Citalopram | Take by mouth | | 0 | | | | Hydrobromide (CELEXA | Daily. | | | | | | PO) | | | | | | + + + +---------+--------+ + | levofloxacin | Take 500 mg by mouth | | 0 | | | | (LEVAQUIN) 500 mg | Daily. | | | | | | tablet | | | | | | + + + +---------+--------+ + | ondansetron | Take 8 mg by mouth | | 0 | | | | (ZOFRAN) 8 MG tablet | as needed. | | | | | + + + +---------+--------+ + | pantoprazole | Take 40 mg by mouth | | 0 | | | | (PROTONIX) 40 mg | Daily. | | | | | | tablet | | | | | | + + + +---------+--------+ + | rOPINIRole | Take 1 mg by mouth 3 | | 0 | | | | (REQUIP) 1 mg tablet | times daily. | | | | | + + + +---------+--------+ + | traMADol (ULTRAM) | Take 50 mg by mouth | | 0 | | | | 50 mg tablet | every 6 hours as | | | | | | | needed. | | | | | + + + +---------+--------+ + documented as of this encounter Plan of Treatment Not on filedocumented as of this encounter Procedures + +--------+ + + + | Procedure Name | Priori | Date/Time | Associated Diagnosis | Comments | | | ty | | | | + +--------+ + + + | XR HAND RIGHT 3 + VW | Routin | 05/23/2013 | Closed fracture of | Results for this | | | e | 5:36 PM | fifth metacarpal | procedure are in the | | | | PST | bone of right hand | results section. | + +--------+ + + + documented in this encounter Results XR Hand Right 3 + Vw (05/23/2013 5:36 PM PST) + + | Specimen | + + | | + + + + + | Narrative | Performed At | + + + | [facility] | [place] | | Department [address] [facility] | [facility] | | [ rep [address]] [ rep [facility] | | st zip] Signed | - IMAGING | | | | | Patient Name: KB JIMENEZ Physician: | | | HEND.01 : 1980 Age: 32 Sex: M Unit #: [id number] | | | Exam Date: 05/23/13 Location: [facility] | | | Report #: [id number] Page: | | | %(RAD)RES..mtdd.print.filter("pg") of %(RAD) | | | RES..mtdd.print.filter("tpg") | | | | | | Accession Number: [id number] | | | RIGHT HAND X-RAY CLINICAL HISTORY: FIFTH METACARPAL | | | FRACTURE. FINDINGS: A linear lucency is seen | | | projecting through the base of the fifth metacarpal, compatible with | | | fracture. It is unknown whether the fracture extends to the | | | articular surface, although it seems likely. The remainder of the | | | bones of the hand and visualized bones of the wrist are within normal | | | limits. Joint spaces and alignment are otherwise maintained. | | | There is soft tissue swelling of the dorsum of the hand. | | | IMPRESSION: LINEAR LUCENCY PROJECTING THROUGH THE BASE | | | OF THE FIFTH METACARPAL, COMPATIBLE WITH FRACTURE. | | | Dictated Date/Time: 05/23/2013 17:36 Transcribed Date/Time: | | | 05/23/2013 18:41 Chocolate Molder: | | | <<Signature on File>> | | | Kali | | | Serafin Bourgeois MD05/24/13 0743 <Electronically signed by Kali Betancourt | | | Christelle VIRGEN> Kali Bourgeois MD 05/23/13 1736 | | | Chocolate Molder: [place] Bqgzlurejkmrg00/04/14 0006 | | | Maik Quevedo MD | | + + + + + + + + | Performing | Address | City/State/Zipcode | Phone Number | | Organization | | | | + + + + + | [facility] | [address] | [place], [place] | [phone] | | [facility] | | [address] | | | - IMAGING | | | | + + + + + documented in this encounter Visit Diagnoses + + | Diagnosis | + + | Closed fracture of fifth metacarpal bone of right hand Closed fracture of metacarpal | | bone(s), site unspecified | + + documented in this encounter
--- OUTSIDE RECORDS SUMMARY | ~2020-01-08 | XMS | Encounter Summary ---
Demographics + + + | Address | [address] | | | [place] [address] | + + + | Home Phone | | + + + | Preferred Language | Unknown | + + + | Marital Status | Unknown | + + + | Shinto Affiliation | 1013 | + + + | Race | White | + + + | Ethnic Group | Not or | + + + Author + + + | Author | [facility] | | | and [place] | + + + | Organization | [facility] | | | and [...] Team Providers + +------+ + | Care Caltrans Equipment Operator Name | Role | Phone | + +------+ + | Corrine Carroll | PCP | | | CUSTOMER SOLUTIONS TEAMMATE | | | + +------+ + Reason [...] | | | | | metacarpal | CUSTOMER SOLUTIONS TEAMMATE [address] [place] | | | | | bone(s), | [address] | [place], [place] | | | | | site | [place], | [address] Phone: | | | | | unspecified | [place] [address] | [phone] | | | | | Pain in | Phone: | Fax: | | | | | joint, lower | [phone] | [phone] | | | | | leg | Fax: | | | | | | Aftercare | [phone] | | | | | | for [...] + + | 05/23/ | Office | [facility] | Maik Quevedo | Closed fracture of | | 2013 | Visit | ORTHOPEDIC SURGERY | MD Chano [address] | fifth metacarpal | | | | [address] [place] | [place] | bone of right hand | | | | [place] | [address] | (Primary Dx); | | | | [id number] | | Arthritis of knee, | | | | [phone] | | degenerative | +--------+---------+ + + [...] Maik Quevedo MD - 05/23/2013 8:00 PM PSTSee soap note [id number].Electronically arlin d by Maik Quevedo MD at 05/23/2013 8:00 PM Maik Hill MD - 05/23/2013 12:00 AM PST ORTHOPEDICS [address] [place] [address] [id number] FAX: [phone] OFFICE VISIT IDENTIFICATION Marie Scott is a 32-year-old male who sees [employer] for primary car e. He resides in [place]. CHIEF COMPLAINT: Right hand pain and left knee pain. HISTORY: Mr. Scott states that he sustained anxiety attacks, which causes irrational beh avior. He apparently awoke from anxiety attack and noted swelling and pain in his right sherman d. He was seen in the emergency room at [facility] and found to have a comm [...] impact injury. He may wish to use pwqq-wjk-qsjyuqo anti-inflammatory medications as needed for flares of pain. Certainly his hand will feel better with the passage of time and once of the weather starts to warm as spring approaches. We have answered questions from carlos shields Marie and his significant other and will plan to see him back in the future as needed . Maik Quevedo MD / [facility] JOB #: [id number] signed by Maik Quevedo MD at 08/22/2013 2:20 PM PDTdo cumented in this encounter Miscellaneous Notes Miscellaneous - [facility] - 05/25/2013 12:00 AM PST iscellaneous - [facility] SC[facility] - 05/23/2013 12:00 AM PSTEle ctronically signed by Ethan Srinivasan at 05/25/2013 4:25 PM PSTdocumented in this encounter Plan of Treatment Not on filedocumented as of this encounter Results XR Hand Right 3 + Vw (05/23/2013 5:36 PM PST) + + | Specimen | + + | | + + + + + | Narrative | Performed At | + + + | [facility] | [place] | | Department [address] [facility] [address] | [facility] | | [ rep [address]] [ rep [facility] | | st zip] Signed | - IMAGING | | | | | Patient Name: MARIE SCOTT Physician: | | | HEND.01 : 1980 Age: 32 Sex: M Unit #: [id number] | | | Exam Date: 05/23/13 Location: [facility] | | | Report #: [id number] Page: | | | %(RAD)RES..mtdd.print.filter("pg") of %(RAD) | | | RES..mtdd.print.filter("tpg") | | | | | | Accession Number: [id number] | | | RIGHT HAND X-RAY CLINICAL [...] Transcribed Date/Time: | | | 05/23/2013 18:41 Semiconductor Processing Group Leader: | | | <<Signature on File>> | | | Kali | | | Serafin Bourgeois MD05/24/13 0743 <Electronically signed by Kali Betancourt | | | Christelle VIRGEN> Kali Bourgeois MD 05/23/13 1736 | | | Semiconductor Processing Group Leader: Brenton Yczbvtyclwqsz33/04/14 4147 | | | Maik Quevedo MD | | + + + + + + + + | Performing | Address | City/State/Zipcode | Phone Number | | Organization | | | | + + + + + | [facility] | [address] | [place], [place] | [phone] | | [facility] | | [id number] | | | - IMAGING | | [...]
--- OUTSIDE RECORDS SUMMARY | ~2020-01-08 | XMS | Encounter Summary ---
Demographics + + + | Address | [address] | | | [place] [address] | + + + | Home Phone | | + + + | Preferred Language | Unknown | + + + | Marital Status | Unknown | + + + | Judaism Affiliation | 1013 | + + + | Race | White | + + + | Ethnic Group | Not or | + + + Author + + + | Author | [facility] | | | and [place] | + + + | Organization | [facility] | | | and [...] Team Providers + +------+ + | Care Process Engineer Name | Role | Phone | + +------+ + | Corrine Carroll | PCP | | | SLICING MACHINE FEEDER | | | + +------+ + Encounter Details +--------+ + + + + | Date | Type | Department | Care Team | Description | +--------+ + + + + | 05/24/ | Abstract | [facility] | Maik Quevedo | | | 2013 | | ORTHOPEDIC SURGERY | MD Chano [address] | | | | | [address] | [place] | | | | | [place] | [address] | | | | | [address] | | | | | | [phone] | | | +--------+ + + + [...] + + documented as of this encounter Plan of Treatment Not on filedocumented as of this encounter Visit Diagnoses Not on filedocumented in this encounter"
[~2020-01-08 17:54] MED LIST changes: +ACETAMINOPHEN500 MG PO; +KEFLEX500 MG PO
--- OUTSIDE RECORDS SUMMARY | 2020-01-08 17:58 | XMS ---
PreManage Notification: MARIE JIMENEZ Security Public Relations Studies Director Events No recent Security Events currently on file CRITERIA MET - [facility] - Has Care Guidelines CARE PROVIDERS HEIKE LOOMIS Physician Lens Fabricating Machine Tender 03/28/2019-Current PHONE: [phone] Guidelines Source: [facility] Guidelines Date: 04/07/2019 Care Coordination: Has\T\nbsp;received\T\nbsp;mental health services with [facility].\T\nbsp; Please contact [facility] with mental health\T\nbsp;concerns.\T\nbsp; [facility]: [phone]\T\nbsp; [facility]: [phone]. Care History Medical/Surgical 11/18/2018 [facility] Care Recommendation: - Patient DOES NOT have a PCP. - Please refer patient to [facility]: [address] [place] [address] 9, [place] [address] This patient has had 5 or more Emergency Department visits in the last 12 months.\T\nbsp; Patient requires education on the scope and purpose of the ED as an acute care provider not a Primary Care Provider and should not be utilized for chronic conditions.\T\nbsp; If patient returns to ED please contact Community Health WorkerSienna at [phone]. These are guidelines and the provider should exercise clinical judgment when providing care. E.D. VISIT COUNT (12 MO.) 2 [facility] TOTAL 2 NOTE: Visits indicate total known visits. ED/UCC VISIT TRACKING (12 MO.) 01/08/2020 17:55 [facility] [place] TYPE: Emergency COMPLAINT: - KNEE PAIN/ INJ 03/28/2019 08:[address] [facility] [place] TYPE: Emergency COMPLAINT: - SKIN PROBLEM, FEVER, VOMITING DIAGNOSES: - Allergy status to other antibiotic agents status - Personal history of nicotine dependence - Major depressive disorder, single episode, unspecified - Cutaneous abscess of buttock - Gastro-esophageal reflux disease without esophagitis - Other snf (current) drug therapy INPATIENT VISIT TRACKING (12 MO.) No inpatient visits to display in this time frame [email or web address]
[2020-01-08] MEDS ORDERED: NORCO 5-325 TA1 EACH PO (18:54)
== END 2020-01-08 19:08 | disposition home or self-care (01) ==
LOC: ED 17:54
DX: S83.91XA Sprain of unspecified site of right knee, initial encounter (principal); X58.XXXA Exposure to other specified factors, initial encounter; F41.9 Anxiety disorder, unspecified; F32.9 Major depressive disorder, single episode, unspecified; K21.9 Gastro-esophageal reflux disease without esophagitis; Z87.891 Personal history of nicotine dependence; Z88.1 Allergy status to other antibiotic agents; Z79.899 Other long term (current) drug therapy
CPT/HCPCS: 73560; 99283-25

== ENCOUNTER 2020-02-28 09:58 | Emergency (ER) | payer OTHER ==
[~2020-02-28] VITALS: Ht 188 cm; Wt 136.1 kg
--- OUTSIDE RECORDS SUMMARY | 2020-02-28 10:02 | XMS ---
PreManage Notification: MARIE JIMENEZ Security Assistant Financial Accountant Events No recent Security Events currently on file CRITERIA MET - [facility] - Has Care Guidelines CARE PROVIDERS HEIKE LOOMIS Physician Collections Professional 03/28/2019-Current PHONE: [phone] Guidelines Source: [facility] Guidelines Date: 04/07/2019 Care Coordination: Has\T\nbsp;received\T\nbsp;mental health services with [facility].\T\nbsp; Please contact [facility] with mental health\T\nbsp;concerns.\T\nbsp; [facility]: [phone]\T\nbsp; [place]: [phone]. E.D. VISIT COUNT (12 MO.) [address] [place] [address] TOTAL 3 NOTE: Visits indicate total known visits. ED/UCC VISIT TRACKING (12 MO.) 02/28/2020 09:59 [facility] [place] TYPE: Emergency COMPLAINT: - LOWER BACK PAIN 01/08/2020 17:55 [facility] [place] TYPE: Emergency COMPLAINT: - KNEE PAIN/ INJ DIAGNOSES: - Gastro-esophageal reflux disease without esophagitis - Pain in right knee - Anxiety disorder, unspecified - Other fci (current) drug therapy - Allergy status to other antibiotic agents - Major depressive disorder, single episode, unspecified - Personal history of nicotine dependence - Exposure to other specified factors, initial encounter - Sprain of unspecified site of right knee, initial encounter 03/28/2019 08:[address] [facility] [place] TYPE: Emergency COMPLAINT: - SKIN PROBLEM, FEVER, VOMITING DIAGNOSES: - Allergy status to other antibiotic agents - Personal history of nicotine dependence - Major depressive disorder, single episode, unspecified - Cutaneous abscess of buttock - Gastro-esophageal reflux disease without esophagitis - Other oil heaterman (current) drug therapy INPATIENT VISIT TRACKING (12 MO.) No inpatient visits to display in this time frame [email or web address]
[2020-02-28] MEDS ORDERED: CYCLOBENZAPRINE10 MG PO (13:03)
[2020-02-28] MEDS ORDERED: LIDODERM1 EACH TOP (13:03)
== END 2020-02-28 13:20 | disposition home or self-care (01) ==
LOC: ED 09:58
DX: M54.5 Low back pain (principal); Z87.891 Personal history of nicotine dependence; Z88.1 Allergy status to other antibiotic agents
CPT/HCPCS: 96372; 99283-25; A9270; J1885